=== PATIENT | male | born 1960 | race Native Hawaiian/Other Pacific Islander ===

== ENCOUNTER 2021-12-02 21:13 | Emergency (ER) | payer OTHER ==
[~2021-12-02] VITALS: Ht 177.8 cm; Wt 109.3 kg
[2021-12-02 21:34] LABS: PLATELET COUNT 205 K/uL (142-355)
[2021-12-02 21:42] LABS: POTASSIUM 4.3 mmol/L (3.6-5.2)
[2021-12-02 23:41] VITALS: BP 154/92; TEMP 97.9
[2021-12-03] MEDS ORDERED: ASPIR-LOW81 MG PO (01:45)
[2021-12-03] MEDS ORDERED: WELLBUTRIN200 MG PO (01:45)
[2021-12-03] MEDS ORDERED: AMLODIPINE BESYLATE PO (01:45)
[2021-12-03] MEDS ORDERED: CELEBREX200 MG PO (01:46)
[2021-12-03] MEDS ORDERED: CHOLECALCIFEROL PO (01:47)
[2021-12-03] MEDS ORDERED: CITALOPRAM10 M1 PO (01:47)
[2021-12-03] MEDS ORDERED: CLARITIN10 M1 PO (01:48)
[2021-12-03] MEDS ORDERED: HYDR10TA10 PO (01:50)
[2021-12-03] MEDS ORDERED: FISH OIL1 C10 PO (01:50)
[2021-12-03] MEDS ORDERED: COZAAR25 MG PO (01:51)
[2021-12-03] MEDS ORDERED: LINZESS72 MCG PO (01:51)
[2021-12-03] MEDS ORDERED: METHOCARBAMOL PO (01:52)
[2021-12-03] MEDS ORDERED: PANTOPRAZOLE 40MG TA PO (01:53)
[2021-12-03] MEDS ORDERED: K-TAB20 MEQ PO (01:53)
[2021-12-03] MEDS ORDERED: PROPRANOLOL HYD60 M1 PO (01:54)
[2021-12-03] MEDS ORDERED: CRESTOR5 MG PO (01:54)
[2021-12-03] MEDS ORDERED: CARAFATE1 GM PO (01:57)
[2021-12-03] MEDS ORDERED: QUDEXY XR100 MG PO (01:59)
[2021-12-03] MEDS ORDERED: TIZANIDINE HYDRO4 MG PO (01:59)
[2021-12-03] MEDS ORDERED: TOPIRAMATE100 MG PO (06:02)
== END 2021-12-02 23:41 | disposition still patient (30) ==
LOC: ED 21:13
PROVIDERS: Emergency Medicine
DX: R46.89 Other symptoms and signs involving appearance and behavior (principal); Z11.52 Encounter for screening for COVID-19; Z04.6 Encounter for general psychiatric examination, requested by authority
CPT/HCPCS: 36415; 80053; 85027; 87635; 93005; 99283; U0003

== ENCOUNTER 2022-03-20 18:18 | Emergency (ER) | payer OTHER ==
[~2022-03-20] VITALS: Ht 177.8 cm; Wt 118.4 kg
[~2022-03-20 18:18] MED LIST: ALUMSUS6 PO; AMLODIPINE 10MG PO; AMLODIPINE BESYLATE PO; ASPIR-LOW81 MG PO; ATARAX 25MG TAB PO; CELE100C2 PO; CELEBREX200 MG PO; CHOL100034 PO; CHOLECALCIFEROL PO; CITALOPRAM10 M1 PO; CLARITIN10 M1 PO; COZAAR25 MG PO; CRESTOR5 MG PO; ENTERIC COATED325 MG PO; FISH OIL1 C10 PO; HYDROXYZINE HYD25 MG PO; K-TAB20 MEQ PO; LINZESS72 MCG PO; LOSA50TA PO; METHOCARBAMOL PO; OLAN2.5T2 PO; PANTOPRAZOLE 40MG TA PO; POTA20TA4 PO; PROP60CA9 PO; PROPRANOLOL ER PO; QUDEXY XR100 MG PO; SUCR1SUS PO; SUCRALFATE1 GM PO; TIZA4TAB5 PO; TIZANIDINE HYDRO4 MG PO; TOPAMAX200 MG PO; TOPI100T PO; WELLBUTRIN150 MG PO; WELLBUTRIN200 MG PO
[2022-03-20 18:41] LABS: PLATELET COUNT 201 K/uL (142-355)
[2022-03-20 18:51] LABS: POTASSIUM 3.9 mmol/L (3.6-5.2)
[2022-03-20 20:20] VITALS: BP 128/79; TEMP 98.1
[2022-03-21] MEDS ORDERED: BUPROPION HYDR150 M1 PO (08:53)
[2022-03-21] MEDS ORDERED: OLAN2.5T2 PO (08:56)
[2022-03-21] MEDS ORDERED: MAALOX ADVAN PO (09:08)
== END 2022-03-20 20:20 | disposition still patient (30) ==
LOC: ED 18:22
PROVIDERS: Emergency Medicine Emergency Medical Services
DX: R46.89 Other symptoms and signs involving appearance and behavior (principal); Z11.52 Encounter for screening for COVID-19; Z04.6 Encounter for general psychiatric examination, requested by authority
CPT/HCPCS: 36415; 80053; 85027; 87635; 93005; 99283; U0003